=== PATIENT | male | born 1995 | race Two or more races ===

== ENCOUNTER 2017-12-08 00:04 | Emergency (ER) | payer BC ==
[~2017-12-08] VITALS: Ht 180.3 cm; Wt 61.2 kg
[2017-12-08] MEDS ORDERED: DICYCLOMINE HCL INJ 20 MG/2 ML AMPUL IM ONE ×2 (00:48→01:00)
[2017-12-08] MEDS ORDERED: MAG HYDROX/AL HYDROX/SIMETH 30 ML UDC ONE (00:48)
[2017-12-08] MEDS ORDERED: LIDOCAINE VISCOUS 2% UD 15 ML UDC ONE (00:48)
[2017-12-08] MEDS ORDERED: LIDOCAINE VISCOUS 2% UD 15 ML UDC MM ONE (01:00)
[2017-12-08] MEDS ORDERED: MAG HYDROX/AL HYDROX/SIMETH 30 ML UDC PO ONE (01:00)
[2017-12-08 01:27] VITALS: BP 114/76
== END 2017-12-08 01:49 | disposition home or self-care (01) ==
LOC: ER 00:04
DX: K21.9 Gastro-esophageal reflux disease without esophagitis (principal); R12 Heartburn; F10.10 Alcohol abuse, uncomplicated; Y90.9 Presence of alcohol in blood, level not specified; Z90.89 Acquired absence of other organs; Z60.2 Problems related to living alone
CPT/HCPCS: A4606; J0500; Z7610

== ENCOUNTER 2019-02-24 06:09 | Emergency (ER) | payer BC, MEDICAID, OTHER ==
[~2019-02-24] VITALS: Ht 175.3 cm; Wt 61.2 kg
[2019-02-24 06:10] VITALS: BP 129/88
[2019-02-24] MEDS ORDERED: MAG HYDROX/AL HYDROX/SIMETH 30 ML UDC ONE (06:58)
[2019-02-24] MEDS ORDERED: LIDOCAINE VISCOUS 2% UD 15 ML UDC ONE (06:58)
[2019-02-24] MEDS ORDERED: LIDOCAINE VISCOUS 2% UD 15 ML UDC MM ONE (07:00)
[2019-02-24] MEDS ORDERED: MAG HYDROX/AL HYDROX/SIMETH 30 ML UDC PO ONE (07:00)
[2019-02-24] MEDS ORDERED: PANTOPRAZOLE 40 MG TABLET.DR PO ONE ×2 (07:30)
[2019-02-24] MEDS: OMEPRAZOLE 20 MG CAPSULE.DR PO ONE ×2 (07:35→07:37)
--- NOTE | 2019-02-24 07:38 | NUR ---
Given prescriptions and explained the the patient.
--- NOTE | 2019-02-24 07:38 | NUR ---
Patient discharged to home in stable condition. Written and verbal after care instructions given. Patient verbalizes understanding of instruction.
== END 2019-02-24 07:39 | disposition home or self-care (01) ==
LOC: ER 06:13
DX: K21.9 Gastro-esophageal reflux disease without esophagitis (principal); Z90.89 Acquired absence of other organs; Z60.2 Problems related to living alone